=== PATIENT | female | born 1950 | race Two or more races ===

== ENCOUNTER 2018-12-31 13:07 | Outpatient (CLI) | payer OTHER | END 2018-12-31 13:10 | disposition home or self-care (01) | LOC: NUCLEAR 13:07 | DX: M81.0 Age-related osteoporosis without current pathological fracture (principal) ==

== ENCOUNTER 2022-03-26 06:53 | Outpatient (CLI) | payer OTHER ==
[~2022-03-26 06:53] MED LIST: DIAZEPAM10 MG; DICY20TA PO; INTESTINEX1 CA1 PO; INTESTINEX680 M1 PO; IRBESARTAN-HCT1 EAC1; NABUMETONE750 MG; PANTOPRAZOLE SO40 MG; PROTONIX40 MG PO; ROSUVASTATIN CA10 MG
== END 2022-03-27 15:31 | disposition home or self-care (01) ==
LOC: TOM 06:53
PROVIDERS: ATTEND Specialist
DX: K57.92 Diverticulitis of intestine, part unspecified, without perforation or abscess without bleeding (principal)

== ENCOUNTER 2022-07-08 10:03 | Outpatient (CLI) | payer OTHER | END 2022-07-08 14:38 | disposition home or self-care (01) | LOC: RAD 10:03 | DX: K57.20 Diverticulitis of large intestine with perforation and abscess without bleeding (principal); R10.32 Left lower quadrant pain ==

== ENCOUNTER 2022-07-08 13:20 | Outpatient (CLI) | payer OTHER | END 2022-07-08 13:28 | disposition home or self-care (01) | LOC: EKG 13:20 | PROVIDERS: ATTEND Surgery | DX: I10 Essential (primary) hypertension (principal) ==

== ENCOUNTER 2022-11-27 07:43 | Outpatient (CLI) | payer OTHER | END 2022-11-27 08:10 | disposition home or self-care (01) | LOC: MRI 07:43 | DX: R42 Dizziness and giddiness (principal) | CPT/HCPCS: 70553; Q9965 ==

== ENCOUNTER 2023-04-21 10:46 | Outpatient (CLI) | payer OTHER | END 2023-04-22 14:41 | disposition home or self-care (01) | LOC: MAMO-SONO 10:46 | PROVIDERS: ATTEND Internal Medicine Cardiovascular Disease | DX: N63.11 Unspecified lump in the right breast, upper outer quadrant (principal); M65.811 Other synovitis and tenosynovitis, right shoulder; Z12.31 Encounter for screening mammogram for malignant neoplasm of breast ==

== ENCOUNTER 2024-06-16 10:07 | Outpatient (CLI) | payer OTHER | END 2024-06-16 14:04 | disposition home or self-care (01) | LOC: RAD 10:07 | PROVIDERS: ATTEND Internal Medicine Rheumatology | DX: M17.11 Unilateral primary osteoarthritis, right knee (principal); M17.12 Unilateral primary osteoarthritis, left knee ==

== ENCOUNTER → 2024-10-12 | Outpatient (CLI) | payer OTHER | END | disposition home or self-care (01) | LOC: MRI 06:52 | PROVIDERS: ATTEND Orthopaedic Surgery | DX: M75.121 Complete rotator cuff tear or rupture of right shoulder, not specified as traumatic (principal) | CPT/HCPCS: 73221 ==

== ENCOUNTER 2024-11-11 10:43 | Outpatient (CLI) | payer OTHER | END 2024-11-12 14:17 | disposition home or self-care (01) | LOC: MAMO-SONO 10:43 | PROVIDERS: ATTEND Internal Medicine Cardiovascular Disease | DX: N60.11 Diffuse cystic mastopathy of right breast (principal); N60.12 Diffuse cystic mastopathy of left breast; Z12.31 Encounter for screening mammogram for malignant neoplasm of breast ==

== ENCOUNTER 2025-01-04 08:47 | Outpatient (CLI) | payer OTHER | END 2025-01-04 14:44 | disposition home or self-care (01) | LOC: RAD 08:47 | PROVIDERS: ATTEND Radiology Diagnostic Radiology | DX: M25.561 Pain in right knee (principal) ==

== ENCOUNTER → 2025-02-25 | Outpatient (CLI) | payer OTHER | END | disposition home or self-care (01) | LOC: RAD 08:21 | PROVIDERS: ATTEND Internal Medicine Pulmonary Disease | DX: R05.3 Chronic cough (principal) ==

== ENCOUNTER 2025-03-17 10:50 | Outpatient (CLI) | payer OTHER | END 2025-03-17 10:51 | disposition home or self-care (01) | LOC: NUCLEAR 10:50 | PROVIDERS: ATTEND Internal Medicine Cardiovascular Disease | DX: M81.0 Age-related osteoporosis without current pathological fracture (principal) ==

== ENCOUNTER 2025-05-13 12:47 | Outpatient (CLI) | payer OTHER | END 2025-05-13 12:51 | disposition home or self-care (01) | LOC: MRI 12:47 | PROVIDERS: ATTEND Radiology Diagnostic Radiology | DX: M54.16 Radiculopathy, lumbar region (principal) | CPT/HCPCS: 72148 ==